=== PATIENT | female | born 1995 | race Caucasian/White ===

== ENCOUNTER 2020-03-24 08:59 | Outpatient (CLI) | payer BC ==
--- NOTE | 2020-03-24 10:34 | MRI ---
MRI BRAIN WITH AND WITHOUT CONTRAST: DATE: 03/24/2020 HISTORY: 24-year-old female with fibromyalgia presents with disequilibrium: Lack of balance, generalized weakn ess, fatigue, and tremors. TECHNIQUE: Multiplanar, multisequence MRI of the brain obtained pre and post IV injection of gadolinium based co ntrast agent. FINDINGS: The ventricles are normal in size and configuration. There is no midline shift or any other evidence of mass effect. There is no extra-axial fluid collection. There is no intra-axial signal abnormality, abnormal enhancement, mass, recent hemorrhage, or restricted diffusion. IMPRESSION: Normal
[2020-03-24] MEDS ORDERED: Magnevist 469MG/ML 20 ML VIAL ONE (11:02)
== END 2020-03-24 09:00 | disposition home or self-care (01) ==
LOC: BICMRI 08:59
PROVIDERS: ATTEND Psychiatry & Neurology Neurology
DX: M79.7 Fibromyalgia (principal)
CPT/HCPCS: 70553; 82565; A9579

== ENCOUNTER 2020-12-12 19:30 | Outpatient (CLI) | payer BC | END 2020-12-12 19:31 | disposition home or self-care (01) | LOC: SLEEPLAB 19:30 | PROVIDERS: ATTEND Student in an Organized Health Care Education/Training Program | DX: G47.33 Obstructive sleep apnea (adult) (pediatric) (principal); G47.34 Idiopathic sleep related nonobstructive alveolar hypoventilation; R06.83 Snoring; G47.00 Insomnia, unspecified; G47.10 Hypersomnia, unspecified; F41.9 Anxiety disorder, unspecified; I47.1 Supraventricular tachycardia | CPT/HCPCS: 95810 ==